=== PATIENT | male | born 1960 | race Caucasian/White ===

== ENCOUNTER 2016-08-09 09:18 | Outpatient (CLI) | payer MEDICARE, OTHER ==
[2016-08-09 09:35] LABS: BASOPHILS % 0.3 (0.0-1.5); EOSINOPHILS % 2.4 % (0.0-6.8); LYMPHOCYTES # 0.6 # k/uL (0.6-4.0); MEAN CORPUSCULAR HEMOGLOBIN 33.6 pg (28.0-34.0); MONOCYTES # 0.2 # k/uL (0.0-0.9); MONOCYTES % 4.5 % (0.0-11.0); NEUTROPHILS # 4.5 # k/uL (1.4-7.7)
[2016-08-09 16:21] LABS: TOTAL PROTEIN 6.9 g/dL (6.0-8.5)
== END 2016-08-09 09:28 ==
LOC: LAB 09:18
PROVIDERS: ATTEND Family Medicine
DX: Z51.81 Encounter for therapeutic drug level monitoring (principal); E78.00 Pure hypercholesterolemia, unspecified; E03.9 Hypothyroidism, unspecified
CPT/HCPCS: 36415; 80053; 80061; 80177; 84443; 85025

== ENCOUNTER 2016-09-05 10:09 | Outpatient (CLI) | payer MEDICARE, OTHER | END 2016-09-05 10:10 | LOC: POD 10:09 | PROVIDERS: ATTEND Podiatrist Public Medicine | DX: B35.1 Tinea unguium (principal); L60.0 Ingrowing nail; M79.674 Pain in right toe(s); M79.675 Pain in left toe(s); M20.11 Hallux valgus (acquired), right foot; M20.12 Hallux valgus (acquired), left foot | CPT/HCPCS: 99213; G0463 ==

== ENCOUNTER 2017-01-09 10:13 | Outpatient (CLI) | payer MEDICARE, OTHER | END 2017-01-09 10:14 | LOC: POD 10:13 | PROVIDERS: ATTEND Podiatrist Public Medicine | DX: B35.1 Tinea unguium (principal); L60.0 Ingrowing nail; M79.675 Pain in left toe(s); M79.674 Pain in right toe(s); M20.11 Hallux valgus (acquired), right foot; M20.12 Hallux valgus (acquired), left foot | CPT/HCPCS: 11721; G0463 ==

== ENCOUNTER 2017-04-10 09:53 | Outpatient (CLI) | payer MEDICARE, OTHER | END 2017-04-10 09:54 | LOC: POD 09:53 | PROVIDERS: ATTEND Podiatrist Public Medicine | DX: B35.1 Tinea unguium (principal); L60.0 Ingrowing nail; M79.674 Pain in right toe(s); M79.675 Pain in left toe(s) | CPT/HCPCS: 11721; G0463 ==

== ENCOUNTER 2017-07-24 09:52 | Outpatient (CLI) | payer MEDICARE, OTHER | END 2017-07-24 09:53 | LOC: POD 09:52 | PROVIDERS: ATTEND Podiatrist Public Medicine | DX: B35.1 Tinea unguium (principal); L60.0 Ingrowing nail; M20.11 Hallux valgus (acquired), right foot; M20.12 Hallux valgus (acquired), left foot; M79.674 Pain in right toe(s); M79.675 Pain in left toe(s) | CPT/HCPCS: 11721; G0463 ==

== ENCOUNTER 2017-08-21 10:08 | Outpatient (CLI) | payer MEDICARE, OTHER ==
[2017-08-21 10:27] LABS: BASOPHILS % 1.5 (0.0-1.5); EOSINOPHILS % 6.2 % (0.0-6.8); MEAN CORPUSCULAR HEMOGLOBIN 34.8 pg (28.0-34.0); MEAN CORPUSCULAR VOLUME 101.9 fl (80.0-100.0); MONOCYTES % 6.9 % (0.0-11.0); NEUTROPHILS # 2.2 # k/uL (1.4-7.7)
--- NOTE | 2017-08-21 11:35 | Diagnostic Imaging Report ---
KWESI LYNCH [facility] [address] [facility] [address] 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 No anterior compression. No abnormal listhesis. Multilevel osteophytes and facet degenerative changes. No odontoid abnormality. No prevertebral abnormality. Head tilt to the left. Impression: Extensive degenerative changes. No compression deformity. Electronically signed on Aug 21, 2017 10:56:51 AM EQUIPMENT OPERATOR [employer] by: Jake DUMONT
[2017-08-21 11:39] LABS: eGFR (African) > 60; eGFR (Non-African) > 60
== END 2017-08-21 10:10 ==
LOC: LAB 10:08
PROVIDERS: ATTEND Family Medicine
DX: M53.82 Other specified dorsopathies, cervical region (principal); Z51.81 Encounter for therapeutic drug level monitoring; E78.00 Pure hypercholesterolemia, unspecified
CPT/HCPCS: 36415; 72040; 80053; 80061; 80177; 85025

== ENCOUNTER 2017-10-23 09:56 | Outpatient (CLI) | payer MEDICARE, OTHER | END 2017-10-23 09:57 | LOC: POD 09:56 | PROVIDERS: ATTEND Podiatrist Public Medicine | DX: B35.1 Tinea unguium (principal); L60.0 Ingrowing nail; M20.11 Hallux valgus (acquired), right foot; M20.12 Hallux valgus (acquired), left foot; M79.674 Pain in right toe(s); M79.675 Pain in left toe(s) | CPT/HCPCS: 11721; G0463 ==

== ENCOUNTER 2018-02-05 10:24 | Outpatient (CLI) | payer MEDICARE, OTHER | END 2018-02-05 10:25 | LOC: POD 10:24 | PROVIDERS: ATTEND Podiatrist Public Medicine | DX: B35.1 Tinea unguium (principal); L60.0 Ingrowing nail; M20.11 Hallux valgus (acquired), right foot; M20.12 Hallux valgus (acquired), left foot; M79.674 Pain in right toe(s); M79.675 Pain in left toe(s) | CPT/HCPCS: 11721; G0463 ==

== ENCOUNTER 2018-06-16 07:58 | Outpatient (CLI) | payer MEDICARE, OTHER ==
[2018-06-16 09:07] LABS: MEAN CORPUSCULAR HEMOGLOBIN 34.7 pg (28.0-34.0)
[2018-06-16 09:08] LABS: BASOPHILS % 0.6 (0.0-1.5); EOSINOPHILS % 7.2 % (0.0-6.8); MONOCYTES % 6.3 % (0.0-11.0); NEUTROPHILS # 2.2 # k/uL (1.4-7.7)
== END 2018-06-16 08:00 ==
LOC: LAB 07:58
PROVIDERS: ATTEND Nurse Practitioner Family
DX: D75.89 Other specified diseases of blood and blood-forming organs (principal)
CPT/HCPCS: 36415; 82607; 82746; 85025